=== PATIENT | female | born 1990 | race Caucasian/White ===

== ENCOUNTER 2017-06-15 14:45 | Outpatient (RCR) | payer MEDICAID ==
[~2017-06-15 14:45] MED LIST: ACET650S13 PO; DCS100C PO; FRS325T PO; IBP800T PO; IBUP-1773 PO; PREN-115 PO
[2017-06-15] MEDS ORDERED: BETAMETHASONE ACE/NA PHOS 6 MG/ML (CELESTONE SOLUSPAN) ONE (15:03)
[2017-06-15] MEDS: BETAMETHASONE ACE/NA PHOS 6 MG/ML (CELESTONE SOLUSPAN) IM SCH (15:13)
[2017-06-16] MEDS: BETAMETHASONE ACE/NA PHOS 6 MG/ML (CELESTONE SOLUSPAN) IM SCH (15:19)
[2017-07-01] MEDS ORDERED: DOCU100C37 PO (08:17)
[2017-07-01] MEDS ORDERED: BENZ56AE2 TP (08:17)
[2017-07-01] MEDS ORDERED: OXYC-471 PO (08:17)
[2017-07-01] MEDS ORDERED: WTCHGPD TOP (08:17)
[2017-07-01] MEDS ORDERED: IBUP-1773 PO (08:17)
== END 2017-09-13 | disposition home or self-care (01) ==
LOC: WSo 14:45
PROVIDERS: ATTEND Family Medicine
DX: O09.213 Supervision of pregnancy with history of pre-term labor, third trimester (principal)
CPT/HCPCS: 96372

== ENCOUNTER 2017-06-29 03:35 | Inpatient (IN) | payer MEDICAID ==
[2017-06-29] VITALS (39 sets, daily range): BP systolic 109–200; BP diastolic 54–154
[~2017-06-29] VITALS: Ht 152.4 cm; Wt 63.7 kg
[2017-06-29] MEDS ORDERED: D5 LR IV SOLUTION 1,000 ML IV SCH (04:14)
[2017-06-29] MEDS ORDERED: AMPICILLIN INJECTION 2,000 MG in NS (IVPB) 50 ML IV SCH (04:14)
[2017-06-29] MEDS ORDERED: MINERAL OIL CONCENTRATE 99.9% 15 ML UDC TOP PRN (04:15)
[2017-06-29] MEDS ORDERED: NS (IVPB) 50 ML ONE (04:18)
[2017-06-29] MEDS ORDERED: AMPICILLIN 2000 MG INJECTION (IM/IV) ONE (04:18)
[2017-06-29 04:29] LABS: BASOPHILS % (AUTO) 0 % (0-10); EOSINOPHILS # (AUTO) 0.2 10^3/uL (0.0-0.3); EOSINOPHILS % (AUTO) 1 % (0-10); LYMPHOCYTES # (AUTO) 2.5 X 10^3 (1.0-4.0); LYMPHOCYTES % (AUTO) 19 % (12-44); MEAN CORPUSCULAR HEMOGLOBIN 30 PG (25-34); MEAN CORPUSCULAR HGB CONC 33 G/DL (32-36); MEAN CORPUSCULAR VOLUME 90 FL (80-99); MONOCYTES % (AUTO) 8 % (0-12); NEUTROPHILS # (AUTO) 9.4 X 10^3 (1.8-7.8); NEUTROPHILS % (AUTO) 72 % (42-75); PLATELET COUNT 450 10^3/uL (130-400); RED BLOOD COUNT 3.53 10^6/uL (4.35-5.85)
[2017-06-29] MEDS ORDERED: SUFENTA 0.6MCG/ML BUPIVA 0.125 100 ML ONE (04:33)
[2017-06-29] MEDS ORDERED: fentaNYL INJECTION 100 MCG/2 ML AMP ONE (05:04)
[2017-06-29] MEDS ORDERED: BUPIVACAINE 0.25% 30 ML (SENSORCAINE) VIAL ONE (05:04)
[2017-06-29] MEDS ORDERED: LIDOCAINE PF 2% 5 ML (XYLOCAINE) VIAL ONE (05:04)
[2017-06-29] MEDS ORDERED: LACTATED RINGERS 1,000 ML IV ONE ×2 (05:39)
[2017-06-29] MEDS ORDERED: EPIDURAL (SUFENTA 0.6MCG/ML BUPIVA 0.125%) 100 ML BAG EPI PRN (05:45)
[2017-06-29] MEDS ORDERED: NALOXONE 0.4 MG/ML 1 ML (NARCAN) VIAL IV PRN (05:45)
[2017-06-29] MEDS ORDERED: ONDANSETRON 4 MG/2 ML (SDV) Z0FRAN IV PRN (05:45)
[2017-06-29] MEDS ORDERED: CATHETER FLUSH 10 ML SYR IV SCH ×2 (06:00→14:00)
--- NOTE | 2017-06-29 07:07 | History & Physical-OB ---
OB - Chief Complaint & HPI Date/Time Date of Admission: Date of Admission: Jun 29, 2017 at 04:10 Time Seen by Provider: 05:30 Chief Complaint/History OB-Reason for Admission/Chief: Labor (35 2/7 wks gestation by definite LMP) Hx : 5 Hx Para: 3 Hx Last Menstrual Period: 10/25/16 Estimated Date of Conception: 11[birth year]08[birth year]16 Expected Date of Delivery: Aug 01, 2017 Gestational Age in Weeks: 35 Gestational Age in Days: 3 Other reason for admission: Labor at 35 2/7 wks gestation by LMP ( 38 1/7 by third trimester US), Active Labor, GBS Positive, Hx of Delivery Admission Nurse Assessment Rev: Yes History of Labs O positive Antibody Screen Negative HIV negative Heb B Negagive RPR Nonreactive PAP WNL GC/Chlamydia negative GBS POSITIVE Allergies and Home Medications Allergies Coded Allergies: Hydrocodone (Verified Allergy, Unknown, NAUSEA, 08/18/12) Home Medications Vit #108/Iron/Fa 1 Each Tablet, 1 EACH PO DAILY, (Reported) OB - History Hx of Present Care: Yes Ultrasounds: Normal mid trimester US Abnormal Ultrasound Findings: Third trimester US only Obstetrical Complications: Other (Insufficient Care, Tobacco Abuse, Short Interconception Spacing, Advance Dilation, Labor) Medical Complications: None Other Concerns: Late Care Information Pre-Hospital Medication Admins: Cyclobenzaprine 10 mg TID PRN Back Pain, Zyrtec PRN allery symptoms Induced Hypertension: No Maternal Gestational Diabetes: No Hemorrhage: No Obstetrical History Hx : 5 Hx Para: 3 Hx # Term Pregnancies: 2 Hx # Pregnancies: 1 Number of Living Children: 3 Hx Termination: No Hx Total # of Abortions (Spona: 1 Hx Multiple Gestation: No Hx Ectopic : No Hx Stillbirth: No Hx Complication: Yes ( Deliveryx1) Hx Induced Hypertens: No Hx Maternal Gestational Diabet: No Hx Hemorrhage: No Delivery History Hx Dystocia: No Hx Forceps Assisted Delivery: No Hx Vacuum Extraction Assisted: No Hx Placenta Abnormality: No Hx Distress: No Hx Large For Gestational Age I: No Hx Small for Gestational Age I: No Hx Section: No Hx Vaginal Delivery Post C-Sec: No Hx Blood Disorders: No Adverse Rxn to Tranfusion: No Patient Past Medical History PSH: T&A Vaginal Delivery x4 PMH: SAB Aniety Depression Tobacco Abuse Social History/Family History HIV/AIDS: No Recent Infectious Disease Expo: No Sexually Transmitted Disease: Yes Alcohol Use: Denies Use Recreational Drug Use: No Smoking Cessation: Current every day smoker Significant Family Hx unknown Immunizations Hepatitis A: Yes Hepatitis B: Yes Tetanus Booster (TDap): Less than 5yrs Date of Influenza Vaccine: May 27, 2016 OB - Admission Exam Physical Exam HEENT: NCAT Heart: Rhythm Normal Lungs: Clear, Equal Abdomen: Gravid Extremities: Normal Reflexes: Normal Cervical Dilatation: 7cm Effacement: 100% Station: 0 Membranes: Ruptured Amniotic Fluid: Clear Heart Rate: 140's Accelerations: Accelerations Present Decelerations: Variable Decelerations Fdc Variability: Average (6-25) Contractions on Admission: < 5 Minutes Apart Date/Time Contractions Began;: 06/29/17 0300 Frequency of Contractions: 2-3 min Duration: 60+ Intensity: Moderate Garcia Scoring Tool (Modified) Dilation (cm): >5cm (3) Effacement (%): 80-100% (3) Descent/Station: -1,0 (2) Cervix Consistency: Soft (2) Cervix Position: Anterior (2) Garcia Score: 15 Labs Laboratory Tests Test 06/29/17 03:42 06/29/17 04:15 Range/Units Urine Opiates Screen NEGATIVE NEGATIVE Urine Oxycodone Screen NEGATIVE NEGATIVE Urine Methadone Screen NEGATIVE NEGATIVE Urine Propoxyphene Screen NEGATIVE NEGATIVE Urine Barbiturates Screen NEGATIVE NEGATIVE Ur Tricyclic Antidepressants Screen NEGATIVE NEGATIVE Urine Phencyclidine Screen NEGATIVE NEGATIVE Urine Amphetamines Screen NEGATIVE NEGATIVE Urine Methamphetamines Screen NEGATIVE NEGATIVE Urine Benzodiazepines Screen NEGATIVE NEGATIVE Urine Cocaine Screen NEGATIVE NEGATIVE Urine Cannabinoids Screen NEGATIVE NEGATIVE White Blood Count 13.0 H 4.3-11.0 10^3/uL Red Blood Count 3.53 L 4.35-5.85 10^6/uL Hemoglobin 10.6 L 11.5-16.0 G/DL Hematocrit 32 L 35-52 % Mean Corpuscular Volume 90 80-99 FL Mean Corpuscular Hemoglobin 30 25-34 PG Mean Corpuscular Hemoglobin Concent 33 32-36 G/DL Red Cell Distribution Width 13.0 10.0-14.5 % Platelet Count 450 H 130-400 10^3/uL Mean Platelet Volume 9.0 7.4-10.4 FL Neutrophils (%) (Auto) 72 42-75 % Lymphocytes (%) (Auto) 19 12-44 % Monocytes (%) (Auto) 8 0-12 % Eosinophils (%) (Auto) 1 0-10 % Basophils (%) (Auto) 0 0-10 % Neutrophils # (Auto) 9.4 H 1.8-7.8 X 10^3 Lymphocytes # (Auto) 2.5 1.0-4.0 X 10^3 Monocytes # (Auto) 1.0 0.0-1.0 X 10^3 Eosinophils # (Auto) 0.2 0.0-0.3 10^3/uL Basophils # (Auto) 0.0 0.0-0.1 10^3/uL OB - Assessment/Plan/Diagnosis Assessment Assessment: active labor, group B positive strep, IUP - , labor Plan Plan: Expectant Management Induction Method: AROM (augmentation) Discharge Diagnosis Diagnosis: Labor Active Labor, 35 2/7 wks gestation Tobacco Abuse Insuffcient Care KRYS AMIN DO Jun 29, 2017 07:07
[2017-06-29] MEDS ORDERED: OXYTOCIN/NORMAL SALINE 500 ML IV ONE (07:21)
[2017-06-29] MEDS ORDERED: LIDOCAINE 1% INJ 20 ML (XYLOCAINE) VIAL ONE (07:25)
[2017-06-29] MEDS ORDERED: INFLUENZA TRIvalent 2017-2018 0.5 ML/45 MCG SYR IM ONE (08:00)
[2017-06-29] MEDS ORDERED: AMPICILLIN INJECTION 1,000 MG in NS (IVPB) 50 ML IV SCH (08:15)
--- NOTE | 2017-06-29 10:28 | OB Labor & Delivery Record ---
L&D History Date of Service Date of Service: Jun 29, 2017 History Expected Date of Delivery: Aug 01, 2017 Gestational Age in Weeks: 35 Hx : 5 Hx Para: 3 Complications Events: Labor <37 wks, Routine care (late care) Operative Indications (Cesarea: N/A-Vaginal Delivery Intrapartal Events: None L&D Stage1 Stage One Onset of Labor - Date: Jun 29, 2017 Onset of Labor - Time: 03:00 Duration - Stage I: 5 hr 53 min Monitors and Tracing Monitor Mode: External Heart Rate: 150 Monitor Accelerations: Non-Uniform Monitor Decelerations: Variable (also some late decelerations) Station: 0 Custodial Variability: Average (6-10) Presentation: Vertex Vital Signs VS - Last 72 Hours, by Label 06/29/17 06/29/17 06/29/17 06/29/17 04:00 05:13 05:16 05:19 Temp 99.2 Pulse 97 107 108 102 Resp 18 18 18 18 B/P (MAP) 134/74 130/70 147/70 128/66 Pulse Ox 98 97 98 06/29/17 06/29/17 06/29/17 06/29/17 05:22 05:25 05:30 05:34 Pulse 94 96 87 97 Resp 18 18 B/P (MAP) 129/71 131/72 125/67 123/67 Pulse Ox 98 97 98 98 06/29/17 06/29/17 06/29/17 06/29/17 05:37 05:41 05:45 05:47 Pulse 83 85 96 96 B/P (MAP) 129/70 121/65 118/59 118/70 Pulse Ox 97 97 97 96 06/29/17 06/29/17 06/29/17 06/29/17 05:49 05:53 05:56 06:00 Pulse 85 99 87 85 B/P (MAP) 124/69 116/73 114/54 127/80 Pulse Ox 96 96 97 97 06/29/17 06/29/17 06/29/17 06/29/17 06:15 06:30 06:45 07:00 Pulse 81 95 81 93 B/P (MAP) 109/59 125/60 121/63 113/68 Pulse Ox 96 97 96 96 Signs of Distress by FHT Signs of Distress Intermittent late decelerations while pushing. Fundal Ht/Cervical Dilatation Cervical Effacement Percentage: 100 Rupture of Membranes Spontaneous Ruture of Membrane: No Amniotic Membrane Rupture Time: 08:32 Amniotic Membrane Fluid Desc.: Clear Vaginal Bleeding Description: Normal Show Induction/Anesthesia Epidural Cath Placement - Time: 0523 L&D Stage2 Stage Two Stage II Date: Jun 29, 2017 Stage II Time: 09:42 Stage II Duration: 70 min Monitors and Tracing Monitor Mode: External Heart Rate: 150 Monitor Accelerations: Non-Uniform Monitor Decelerations: Variable Priest Variability: Moderate (11-25) Position: Left Occiput Posterior Presentation: Vertex Cord Descript/Complications Cord Vessel Description: 3 Vessels Delivery Type Infant Delivery Method: Spontaneous Vaginal Anterior Shoulder: Right Episiotomy/Perineal Laceration Laceraction(s)/Extensions: No Episiotomy Description: None Condition of Delivery Delivery Date & Time: 06/29/17 0942 1 minute Comment: 7 5 minute Comment: 7 Condition of Infant Condition of : Living Exam: No Observed Abnormalities Resuscitation Resuscitation: N/A - Spontaneous Resp Resuscitation Comments: dry and stimulate, bulb suction L&D Stage3 Stage Three Stage III Date: Jun 29, 2017 Stage III Time: 09:47 Stage III Duration: 5 Pictocin Pitocin ml/hr: 500 Pitocin Administration Comment: administered at bolus rate after delivery of Placenta Delivery Placenta Delivery: Spontaneous Delivery Summary Summary Total Labor Time 6 hr 47 min Estimated blood loss (mL): 200 Attending at delivery: Andrea Vazquez DO Condition of Delivery Examined: Cervix Examined, Uterus Explored Post Hemorrhage: No Condition of Mother stable Condition of (s) KRYS Friedman DO Jun 29, 2017 10:28
[2017-06-29] MEDS ORDERED: OXYTOCIN/NORMAL SALINE 500 ML IV SCH (10:30)
[2017-06-29] MEDS ORDERED: BENZOCAINE/MENTHOL (DERMOPLAST) 56 ML CAN TP PRN (10:30)
[2017-06-29] MEDS ORDERED: MEASLES,MUMPS,RUBELLA 1 EA INJ SQ ONE (10:30)
[2017-06-29] MEDS ORDERED: WITCH HAZEL(TUCKS) 40 EA JAR TOP PRN (10:30)
[2017-06-29] MEDS ORDERED: TETANUS,DIPTH,PERTUSS P/F (BOOSTRIX) 0.5 ML VIAL IM ONE (10:30)
[2017-06-29] MEDS ORDERED: DIBUCAINE (NUPERCAINAL) 1% OINT 30 GM TOP PRN (10:30)
[2017-06-29] MEDS ORDERED: oxyCODONE/APAP 5/325MG (PERCOCET 5) TABLET PO PRN (10:30)
[2017-06-29] MEDS: IBUPROFEN 600 MG (MOTRIN) TAB PO SCH ×2 (12:48→18:36)
[2017-06-29] MEDS: oxyCODONE/APAP 5/325MG (PERCOCET 5) TABLET PO PRN ×2 (14:54→19:58)
[2017-06-29] MEDS: DOCUSATE SODIUM 100 MG (COLACE) CAP PO SCH (22:24)
[2017-06-30 00:15] VITALS: BP 119/66
[2017-06-30] MEDS: IBUPROFEN 600 MG (MOTRIN) TAB PO SCH ×4 (00:15→22:58)
[2017-06-30 04:18] VITALS: BP 101/55
[2017-06-30 05:48] LABS: BASOPHILS % (AUTO) 0 % (0-10); EOSINOPHILS # (AUTO) 0.2 10^3/uL (0.0-0.3); EOSINOPHILS % (AUTO) 2 % (0-10); LYMPHOCYTES # (AUTO) 2.8 X 10^3 (1.0-4.0); LYMPHOCYTES % (AUTO) 20 % (12-44); MEAN CORPUSCULAR HEMOGLOBIN 30 PG (25-34); MEAN CORPUSCULAR HGB CONC 33 G/DL (32-36); MEAN CORPUSCULAR VOLUME 91 FL (80-99); MEAN PLATELET VOLUME 8.9 FL (7.4-10.4); MONOCYTES % (AUTO) 8 % (0-12); NEUTROPHILS # (AUTO) 9.4 X 10^3 (1.8-7.8); NEUTROPHILS % (AUTO) 70 % (42-75); PLATELET COUNT 366 10^3/uL (130-400); RED CELL DISTRIBUTION WIDTH 13.2 % (10.0-14.5); WHITE BLOOD COUNT 13.5 10^3/uL (4.3-11.0)
[2017-06-30] MEDS ORDERED: INFLUENZA TRIvalent 2017-2018 0.5 ML/45 MCG SYR IM ONE (09:10)
[2017-06-30] MEDS ORDERED: TETANUS,DIPTH,PERTUSS P/F (BOOSTRIX) 0.5 ML VIAL IM ONE (09:10)
[2017-06-30 09:25] VITALS: BP 130/70
[2017-06-30] MEDS: PRENATAL VITAMIN 1 EA TAB PO SCH (09:27)
[2017-06-30] MEDS: DOCUSATE SODIUM 100 MG (COLACE) CAP PO SCH ×2 (09:27→22:59)
--- NOTE | 2017-06-30 14:29 | Progress Note (SOAP) ---
Subjective Subjective/Events-last exam No complaints this morning, other than patient reports she is extremely tired. Reports pain is well controlled with medication and that she is ambulating as well as voiding without difficulty. Review of Systems Date Seen by Provider: Jun 30, 2017 Time Seen by Provider: 11:00 General: No Chills, No Night Sweats, Fatigue HEENT: No Head Aches, No Visual Changes, No Eye Pain, No Dysphasia, No Sore Throat Pulmonary: No Dyspnea, No Cough Cardiovascular: No: Chest Pain, Palpitations, Edema, Lt Headedness Gastrointestinal: No: Nausea, Vomiting, Diarrhea, Constipation Genitourinary: No Dysuria, No Incontinence Musculoskeletal: No: neck pain, back pain, leg pain Neurological: No: Weakness, Numbness, Incoordination, Change in speech, Confusion, Seizures Objective Exam Last Set of Vital Signs Vital Signs Date Time Temp Pulse Resp B/P (MAP) Pulse Ox O2 Delivery O2 Flow Rate FiO2 06/30/17 04:18 96.9 83 18 101/55 99 Room Air Capillary Refill : General: Alert, Oriented X3, Cooperative, No Acute Distress HEENT: Atraumatic, EOMI, Mucous Memb Moist/[place] Neck: Supple, No JVD, No Thyromegaly Lungs: Clear to Auscultation, Normal Air Movement Heart: Regular Rate, Normal S1, Normal S2 Abdomen: Normal Bowel Sounds, Soft, No Hepatosplenomegaly, No Masses, Other ( post gravid) Extremities: No Clubbing, No Cyanosis, Normal Pulses Skin: No Rashes, No Significant Lesion Neuro: Normal Gait, Normal Speech, Normal Tone, Sensation Intact, Cranial Nerves 3-12 NL Psych/Mental Status: Mental Status NL, Mood NL Results/Procedures Lab Laboratory Tests 06/30/17 05:30: White Blood Count 13.5H, Red Blood Count 3.10L, Hemoglobin 9.2L, Hematocrit 28L , Mean Corpuscular Volume 91, Mean Corpuscular Hemoglobin 30, Mean Corpuscular Hemoglobin Concent 33, Red Cell Distribution Width 13.2, Platelet Count 366, Mean Platelet Volume 8.9, Neutrophils (%) (Auto) 70, Lymphocytes (%) (Auto) 20, Monocytes (%) (Auto) 8, Eosinophils (%) (Auto) 2, Basophils (%) (Auto) 0, Neutrophils # (Auto) 9.4H, Lymphocytes # (Auto) 2.8, Monocytes # (Auto) 1.0, Eosinophils # (Auto) 0.2, Basophils # (Auto) 0.0 Assessment/Plan Assessment/Plan Admission Dx Active Labor Gestation Tobacco Abuse Plan Routine care; motrin 600 mg Q6H and oxycodone/apa 5/325 PRN breakthrough pain. Encourage tobacco cessation. Anticipate discharge to home with infant tomorrow. Clinical Quality Measures DVT/VTE Risk/Contraindication: Risk Factor Score Per Nursin RFS Level Per Nursing on Admit: 2=Moderate KRYS AMIN DO Jun 30, 2017 14:29
[2017-06-30 16:43] VITALS: BP 138/79
[2017-06-30 21:00] VITALS: BP 129/68
[2017-07-01 02:00] VITALS: BP 100/52
[2017-07-01] MEDS: IBUPROFEN 600 MG (MOTRIN) TAB PO SCH ×2 (04:54→09:29)
[2017-07-01] MEDS: PRENATAL VITAMIN 1 EA TAB PO SCH ×2 (05:59→09:29)
[2017-07-01 08:00] VITALS: BP 123/76
--- NOTE | 2017-07-01 08:11 | Discharge Summary ---
Diagnosis/Chief Complaint Date of Admission Jun 29, 2017 at 04:10 Date of Discharge 07/01/17 Admission Diagnosis Admission Diagnosis Active Labor Labor Insufficient Care Tobacco Abuse GBS Positive Hx of Delivery Discharge Diagnosis Delivery of Viable Female Tobacco Abuse Vaginal Delivery Chief Complaint/HPI Chief Complaint/HPI Patient was admitted in active labor. She was treated with ampicillin per GBS prophylaxis protocol. After the patient received her second dose of IV antibiotics, her membranes were ruptured without difficulty. She rapidly progressed to complete dilation and delivered a viable female infant weighing 2500 g in the left aspect posterior position over an intact perineum. The placenta was delivered intact with a three-vessel cord. Due to her prematurity, as well as her insufficient and late-onset care, the placenta was sent to pathology and reports are pending. The patient had a routine course without complication and her pain is currently well controlled with by mouth medications. She will be discharged to home on pelvic rest with directions to follow-up in the office in 4-6 weeks. Discharge Summary-Simple/Stand Procedures Epidural Spontaneous Vaginal Delivery Consultations Anesthesia - Epidural Placement Discharge Physical Examination Allergies: Coded Allergies: hydrocodone (Verified Allergy, Unknown, NAUSEA, 08/18/12) latex (Verified Allergy, Unknown, 06/30/17) Vitals & I&Os Vital Sign - Last 12Hours Date Time Temp Pulse Resp B/P (MAP) Pulse Ox O2 Delivery O2 Flow Rate FiO2 07/01/17 02:00 97.5 88 18 100/52 96 Room Air General Appearance: Alert, Oriented X3, Cooperative, No Acute Distress HEENT: Atraumatic, PERRLA, EOMI, Mucous Memb Moist/[place] Respiratory: Clear to Auscultation, Normal Air Movement Cardiovascular: Regular Rate, Normal S1, Normal S2, No Murmurs Abdominal: Normal Bowel Sounds, Soft, No Tenderness, No Hepatosplenomegaly, Other (post gravid) Extremities: No Clubbing, No Cyanosis, No Edema, Normal Pulses, No Tenderness/ Swelling, Other (negative obi's bilaterally) Skin: No Rashes, No Breakdown, No Significant Lesion Neuro: Normal Gait, Normal Speech, Normal Tone, Sensation Intact, Cranial Nerves 3-12 NL Psych/Mental Status: Mental Status NL, Mood NL Hospital Course See final discharge diagnosis. Labs Laboratory Tests Test 06/29/17 03:42 06/29/17 04:15 06/30/17 05:30 Range/Units Urine Opiates Screen NEGATIVE NEGATIVE Urine Oxycodone Screen NEGATIVE NEGATIVE Urine Methadone Screen NEGATIVE NEGATIVE Urine Propoxyphene Screen NEGATIVE NEGATIVE Urine Barbiturates Screen NEGATIVE NEGATIVE Ur Tricyclic Antidepressants Screen NEGATIVE NEGATIVE Urine Phencyclidine Screen NEGATIVE NEGATIVE Urine Amphetamines Screen NEGATIVE NEGATIVE Urine Methamphetamines Screen NEGATIVE NEGATIVE Urine Benzodiazepines Screen NEGATIVE NEGATIVE Urine Cocaine Screen NEGATIVE NEGATIVE Urine Cannabinoids Screen NEGATIVE NEGATIVE White Blood Count 13.0 H 13.5 H 4.3-11.0 10^3/uL Red Blood Count 3.53 L 3.10 L 4.35-5.85 10^6/uL Hemoglobin 10.6 L 9.2 L 11.5-16.0 G/DL Hematocrit 32 L 28 L 35-52 % Mean Corpuscular Volume 90 91 80-99 FL Mean Corpuscular Hemoglobin 30 30 25-34 PG Mean Corpuscular Hemoglobin Concent 33 33 32-36 G/DL Red Cell Distribution Width 13.0 13.2 10.0-14.5 % Platelet Count 450 H 366 130-400 10^3/uL Mean Platelet Volume 9.0 8.9 7.4-10.4 FL Neutrophils (%) (Auto) 72 70 42-75 % Lymphocytes (%) (Auto) 19 20 12-44 % Monocytes (%) (Auto) 8 8 0-12 % Eosinophils (%) (Auto) 1 2 0-10 % Basophils (%) (Auto) 0 0 0-10 % Neutrophils # (Auto) 9.4 H 9.4 H 1.8-7.8 X 10^3 Lymphocytes # (Auto) 2.5 2.8 1.0-4.0 X 10^3 Monocytes # (Auto) 1.0 1.0 0.0-1.0 X 10^3 Eosinophils # (Auto) 0.2 0.2 0.0-0.3 10^3/uL Basophils # (Auto) 0.0 0.0 0.0-0.1 10^3/uL Discussion & Recommendations the patient has done very well with routine course. She will be discharged home on pelvic rest with routine medications for pain, and instructed to continue her vitamins as well as her stool softeners. She will follow-up in the office in 4-6 weeks. Discharge Condition at discharge Stable Instructions to patient/family Please see electronic discharge instructions given to patient. Discharge Medications Reviewed and agree with Discharge Medication list on patient's Discharge Instruction sheet Clinical Quality Measures DVT/VTE Risk/Contraindication: Risk Factor Score Per Nursin RFS Level Per Nursing on Admit: 2=Moderate KRYS AMIN DO Jul 01, 2017 08:11
[2017-07-01] MEDS ORDERED: IBUP-1773 PO (08:17)
[2017-07-01] MEDS ORDERED: OXYC-471 PO (08:17)
[2017-07-01] MEDS ORDERED: WTCHGPD TOP (08:17)
[2017-07-01] MEDS ORDERED: DOCU100C37 PO (08:17)
[2017-07-01] MEDS ORDERED: BENZ56AE2 TP (08:17)
--- NOTE | 2017-07-01 08:22 | Discharge Instructions ---
Discharge Inst-Women[facility] Serv Depart Medications New, Converted or Re-Newed RX: Transmitted to Pharmacy Final Diagnosis Vaginal Delivery New Medications: PENDING: Benzocaine/Menthol (Dermoplast [place]) 56 Gm Aerosol 56 ML TP UD PRN for PAIN- SEE INSTRUCTIONS for 7 Days, #56 ML 0 Refills apply topically as needed to perineal area for pain relief PENDING: Docusate Sodium (Docusate Sodium) 100 Mg Capsule 100 MG PO BID for 30 Days, #60 CAP 1 Refill PENDING: Ibuprofen (Ibuprofen) 600 Mg Tablet 600 MG PO Q6H PRN for PAIN-MILD TO MODERATE MDD 4 tabs for 14 Days, #45 TAB 1 Refill PENDING: Oxycodone HCl/Acetaminophen (Oxycodone-Acetaminophen 5-325) 1 Each Tablet 1 TAB PO Q4H PRN for PAIN-SEVERE MDD 6 tabs for 7 Days, #20 TAB 0 Refills PENDING: Witch [place]/Glycerin (A.e.r Pads) 40 Ea Pad 1 EA TOP UD PRN for PAIN- SEE INSTRUCTIONS for 14 Days, #30 PAD 1 Refill use as needed for perineal discomfort or hemorrhoids Continued Medications: Vit #108/Iron/Fa ( One Tablet) 1 Each Tablet 1 EACH PO DAILY Follow Up/Instructions Goal/Follow Up: Follow up in office for routine visit in 4-6 weeks Patient Instructions: Pelvic rest until seen in office, return sooner than scheduled appt if fever >101 unrelieved by tylenol, pain unrelieved by medications, heavy bleeding that saturates more than 1 pad per hour for 2 hours in a row, passing clots larger than the size of your fist, foul smelling vaginal discharge or odor, or any other complaints or concerns Orders/Referrals [facility] - referral has already been placed and consent has already been signed Activity Activity: Activity as Tolerated Driving Instructions: You May Drive Nothing Inside Vagina: No Douching, No Vevay, No Tampons Diet Discharge Diet: No Restrictions Return to The Hospital For: fever >101 unrelieved by tylenol, pain unrelieved by medications, heavy bleeding that saturates more than 1 pad per hour for 2 hours in a row, passing clots larger than the size of your fist, foul smelling vaginal discharge or odor, or any other complaints or concerns Symptoms to Report to : Extremity Discoloration, Bleeding Excessive, Pain Increased, Fever Over 101 Degrees F, Pain/Pressure in Chest, Heart Beat Irreg/ Pounding, Lightheadedness, Pain/Pressure in Shoulder, Vaginal Discharge Foul, Memory Changes Suddenly, Dizziness/Fainting, Shortness of Breath For Any Problems or Questions: Contact Your Physician Skin/Wound Care Infection Signs and Symptoms: Foul Odor of Wound, Temperature Above 101 F Bathing Instructions: Tub, Shower (pulmonary) KRYS AMIN DO Jul 01, 2017 08:22
[2017-07-01] MEDS: DOCUSATE SODIUM 100 MG (COLACE) CAP PO SCH (09:28)
[2017-07-01 11:00] VITALS: BP 94/51
== END 2017-07-01 14:55 | disposition home or self-care (01) | DRG 775 ==
LOC: WSo 03:35 → LDRP 03:35 → WSo 04:10 → LDRP 11:30
PROVIDERS: ADMIT Family Medicine; ATTEND Family Medicine
PROC: 10E0XZZ Delivery of Products of Conception, External Approach (ICD-10-PCS; principal; 2017-06-29)
DX: O60.14X0 Preterm labor third trimester with preterm delivery third trimester, not applicable or unspecified (principal); O99.820 Streptococcus B carrier state complicating pregnancy; O09.33 Supervision of pregnancy with insufficient antenatal care, third trimester; O99.333 Smoking (tobacco) complicating pregnancy, third trimester; F17.210 Nicotine dependence, cigarettes, uncomplicated; O76 Abnormality in fetal heart rate and rhythm complicating labor and delivery; O99.343 Other mental disorders complicating pregnancy, third trimester; F41.9 Anxiety disorder, unspecified; F32.9 Major depressive disorder, single episode, unspecified; Z3A.35 35 weeks gestation of pregnancy; Z37.0 Single live birth; Z23 Encounter for immunization
CPT/HCPCS: 36415; 80306; 85025; 86850; 86900; 86901; 90715; 99212

== ENCOUNTER 2019-04-27 18:00 | Emergency (ER) | payer OTHER, MEDICAID | END 2019-04-27 19:19 | disposition home or self-care (01) | LOC: ER 18:00 ==

== ENCOUNTER → 2021-06-26 | Outpatient (CLI) | payer MEDICAID, OTHER ==
[~2021-06-26] MED LIST changes: +BENZ56AE2 TP; +CEFU250T80 PO; +DOCU100C37 PO; +OXYC1TAB11 PO; +WTCHGPD TOP
--- NOTE | 2021-06-26 16:15 | Diagnostic Imaging Report ---
INDICATION: patient, size and dates. TECHNIQUE: Multiple real-time grayscale images were obtained over the gravid uterus. COMPARISON: None during this . FINDINGS: A single live intrauterine fetus is seen measuring 27 weeks 1 day in size with sonographic EDC of 09/24/2021. Fetus is in breech presentation at this time. Placenta is anterior with no evidence of previa. heart rate is 135 BPM. Cervical length is 4.4 cm. Maternal adnexa were not well visualized. survey showed normal-appearing kidneys and bladder and stomach. Normal-appearing intracranial ventricles are seen. Four-chamber heart view and spine views were normal. Three-vessel cord and cord insertion appear normal. Biometrical measurements are as follows: Biparietal 6.85 cm, age 27 weeks 4 days. Head circumference 25.41 cm, age 27 weeks 5 days. Abdominal circumference 21.73 cm, age 26 weeks 2 days. Femur length 4.92 cm, age 26 weeks 4 days. Sonographic estimate age: 27 weeks 1 days. Sonographic estimated date of delivery: 09/24/2021. Estimated Weight: 950 gm (+/- 139 gm). LMP percentile: 26%. heart rate: 135 beats per minute. number: 1 of 1. IMPRESSION: Single live intrauterine fetus measuring 27 weeks 1 day in size. There was no detectable abnormality. Dictated by: Dictated on workstation # [id number]
== END ==
LOC: RAD 10:15
PROVIDERS: ATTEND Family Medicine
DX: Z34.92 Encounter for supervision of normal pregnancy, unspecified, second trimester (principal); Z3A.27 27 weeks gestation of pregnancy
CPT/HCPCS: 76805